=== PATIENT | male | born 1980 | race Hispanic/Latino ===

== ENCOUNTER 2018-03-23 04:45 | Emergency (ER) | payer OTHER ==
[2018-03-23 04:55] VITALS: BMI 36.5
[2018-03-23 04:58] VITALS: RESP 18; TEMP 97.4
[2018-03-23] MEDS ORDERED: Sodium Chloride 0.9% 1,000 ML IV STA (04:58)
--- NOTE | 2018-03-23 05:11 | ED PDOC ---
HPI: Male Pain Time Seen by Provider: 03/23/18 04:53 Chief Complaint (Nursing): Male Genitourinary History Per: Patient History/Exam Limitations: no limitations Onset/Duration Of Symptoms: Hrs Current Symptoms Are (Timing): Still Present Quality Of Discomfort: Aching Associated Symptoms: Nausea. denies: Fever, Chills, Vomiting Alleviating Factors: None Additional Complaint(s): Hx of renal stone 10 years ago presenting with R sided flank pain, sudden onset while sleeping, assoc. w/ nausea on arrival to ER but no vomiting. No urinary symptoms, no fevers, chills. Denies other medical issues. Past Medical History Reviewed: Historical Data, Nursing Documentation, Vital Signs Vital Signs: Last Vital Signs Temp 97.4 F L 03/23/18 04:55 Pulse 104 H 03/23/18 04:55 Resp 18 03/23/18 04:55 BP 134/86 03/23/18 04:55 Pulse Ox 94 L 03/23/18 04:55 - Medical History PMH: No Chronic Diseases - Family History Family History: States: Unknown Family Hx - Allergies Allergies/Adverse Reactions: Allergies Allergy/AdvReac Type Severity Reaction Status Date / Time No Known Allergies Allergy Verified 03/23/18 04:55 Review of Systems ROS Statement: Except As Marked, All Systems Reviewed And Found Negative Gastrointestinal: Positive for: Nausea Musculoskeletal: Positive for: Back Pain Physical Exam - Reviewed Nursing Documentation Reviewed: Yes Vital Signs Reviewed: Yes - Physical Exam Appears: Positive for: Well, Non-toxic, Uncomfortable Head Exam: Positive for: ATRAUMATIC, NORMAL INSPECTION, NORMOCEPHALIC Skin: Positive for: Normal Color, Warm, DRY Eye Exam: Positive for: EOMI, Normal appearance, PERRL ENT: Positive for: Normal ENT Inspection Neck: Positive for: Normal, Painless ROM Cardiovascular/Chest: Positive for: Regular Rate, Rhythm Respiratory: Positive for: CNT, Normal Breath Sounds Gastrointestinal/Abdominal: Positive for: Normal Exam, Soft. Negative for: Tenderness, Organomegaly, Distended, Guarding, Rebound Back: Positive for: R CVA Tenderness Extremity: Positive for: Normal ROM Neurologic/Psych: Positive for: Alert, Oriented - Laboratory Results Result Diagrams: 03/23/18 05:22 03/23/18 05:22 - ECG O2 Sat by Pulse Oximetry: 94 Pulse Ox Interpretation: Normal Medical Decision Making Medical Decision MakinAM A/P: Hx of renal stone presenting with flank pain -likely renal stone, less like msk strain, not concerned for aaa, cauda equina, cord impingement syndrome -will get labs, ct -toradol, fluids 7AM -moderate blood in dip -pending CT results -patient is feeling much better -will endorse to dr. dominique Disposition - Clinical Impression Clinical Impression: Kidney stone - Patient ED Disposition Is Patient to be Admitted: Transfer of Care - Disposition Disposition: Transfer of Care Disposition Time: 07:00 Condition: STABLE Forms: [employer] ([place]) Patient Signed Over To: Leonora Dominique Handoff Comments: pending ct result
[2018-03-23] MEDS ORDERED: SODIUM CHLORIDE 0.9% IV STA (05:19)
[2018-03-23] MEDS ORDERED: LIDOCAINE IV STA (05:19)
[2018-03-23] MEDS ORDERED: Lidocaine 2 Grams in D5W 0 MG/0 ML BAG IV ONE (05:22)
[2018-03-23 05:32] LABS: HEMOGLOBIN 14.9 g/dL (12.0-18.0); MEAN CELL VOLUME 78.9 fl (80.0-94.0); MEAN CORPUSCULAR HEMOGLOBIN 26.9 pg (27.0-31.0); RBC 5.54 Mil/uL (4.40-5.90); RED CELL DISTRIBUTION WIDTH 14.4 % (11.5-14.5); WHITE BLOOD COUNT 10.8 K/uL (4.8-10.8)
[2018-03-23 05:39] LABS: BLOOD UREA NITROGEN 20 mg/dl (9-20); CALCIUM 9.1 mg/dL (8.4-10.2); GFR AFRICAN-AMERICAN > 60; GFR NON-AFRICAN AMERICAN > 60
[2018-03-23 06:56] LABS: SQUAMOUS EPITHIAL < 1 /hpf (0-5); URINE BILIRUBIN NEGATIVE (NEGATIVE); URINE BLOOD MODERATE (NEGATIVE); URINE CLARITY SLIGHTY-CLOUDY (Clear); URINE COLOR YELLOW (YELLOW); URINE GLUCOSE (UA) NEG (Normal); URINE LEUKOCYTE ESTERASE NEG Leu/uL (Negative); URINE PROTEIN NEGATIVE (NEGATIVE)
--- NOTE | 2018-03-23 07:15 | ED PDOC ---
- Laboratory Results Result Diagrams: 03/23/18 05:22 03/23/18 05:22 - ECG O2 Sat by Pulse Oximetry: 94 Medical Decision Making Medical Decision Making: Time: 7:00 --Patient transferred over to this provider by Dr. Henao pending CT. Scribe Attestation: Documented by Ruby Roy, acting as a scribe for Leonora Dominique MD Provider Scribe Attestation: All medical record entries made by the Scribe were at my direction and personally dictated by me. I have reviewed the chart and agree that the record accurately reflects my personal performance of the history, physical exam, medical decision making, and the department course for this patient. I have also personally directed, reviewed, and agree with the discharge instructions and disposition. Disposition - Clinical Impression Clinical Impression: Kidney stone - Disposition Condition: STABLE Forms: [employer] (Green[place]ic)
[2018-03-23 08:15] VITALS: BP 121/82; PULSE 85; O2SAT 98
--- NOTE | 2018-03-23 08:22 | CT ---
PROCEDURE: CT Abdomen and Pelvis without intravenous contrast HISTORY: R flank pain COMPARISON: None. TECHNIQUE: Axial and reformatted coronal and sagittal CT images of the abdomen and pelvis were obtained without IV or oral contrast administration. Contrast dose: 0 Radiation dose: Total exam DLP = 1047.92 mGy-cm. This CT exam was performed using one or more of the following dose reduction techniques: Automated exposure control, adjustment of the mA and/or kV according to patient size, and/or use of iterative reconstruction technique. FINDINGS: LOWER THORAX: Unremarkable. LIVER: There is 1.4 x 1.2 centimeter low-attenuation lesion at the anterior aspect of the left liver lobe may represent cyst or small hemangioma. . No gross lesion or ductal dilatation. GALLBLADDER AND BILE DUCTS: Unremarkable. PANCREAS: Unremarkable. No gross lesion or ductal dilatation. SPLEEN: Unremarkable. ADRENALS: Unremarkable. No mass. KIDNEYS AND URETERS: There is mild right hydronephrosis and hydroureter without evidence of obstructing stone in the right ureter. The left kidney is grossly unremarkable. VASCULATURE: Unremarkable. No aortic aneurysm. BOWEL: Unremarkable. No obstruction. No gross mural thickening. APPENDIX: Unremarkable. Normal appendix. PERITONEUM: Unremarkable. No free fluid. No free air. LYMPH NODES: Unremarkable. No enlarged lymph nodes. BLADDER: There is 2 millimeter stone seen in the posterior dependent portion of the bladder likely passed from the right kidney collecting system. REPRODUCTIVE: Unremarkable. BONES: No acute fracture. OTHER FINDINGS: None. IMPRESSION: Mild right hydronephrosis and hydroureter without evidence of obstructing stone in the collecting system of the right kidney. 2 millimeter stone seen in the bladder likely passed from the right ureter. Otherwise no evidence of acute pathology in the abdomen and pelvis.
== END 2018-03-23 08:16 | disposition home or self-care (01) ==
LOC: H.ER 04:45
DX: N20.0 Calculus of kidney (principal); Z87.442 Personal history of urinary calculi
CPT/HCPCS: 74176; 80048; 81003; 85027; 87086; 96361; 96374; 99284; J1885; J7030